=== PATIENT | female | born 1940 | race Caucasian/White ===

== ENCOUNTER 2018-05-31 14:46 | Emergency (ER) | payer MEDICARE ==
[2018-05-31] MEDS ORDERED: LIDOCAINE IV ONE (15:31)
[2018-05-31] MEDS ORDERED: Lidocaine 2% Gel 5 mL TP ONE (15:33)
[2018-05-31] MEDS ORDERED: Cetacaine 56 mL Bottle TP ONE (15:38)
--- NOTE | 2018-05-31 15:50 | ED Physician Chart ---
ED Chief Complaint/HPI - Patient Information Date Seen:: 05/31/18 Time Seen:: 15:20 Chief Complaint:: NG tube out. History of Present Illness:: Patient [facility] tube feeds [facility] the shelter. She pulled her own NG tube out. They would like for us to replace it. Allergies:: Allergies Allergy/AdvReac Type Severity Reaction Status Date / Time acetaminophen [From Ultracet] Allergy Verified 05/31/18 15:14 codeine Allergy Verified 05/31/18 15:15 diclofenac [From Voltaren] Allergy Verified 05/31/18 15:15 tramadol Allergy Verified 05/31/18 15:14 Vitals:: Vital Signs - 8 hr 05/31/18 15:15 Temp 98.8 F HR 69 RR 23 BP 135/43 O2 Sat % 99 ED Physical Exam - Physical Examination General/Constitutional: Awake Other Gen/Cons comments:: Patient appears to be permanently out of it. She has an opened mouth with dry mucous membranes. She is verbalizing unintelligible sounds. Cachectic appearing female. Head: Atraumatic Eyes: PERRL Other Skin comments:: Multiple areas of presumed skin breakdown with bandages present on the right back areas. Egg crate shoes in place. Poor skin turgor. Other ENMT comments:: Chronic beige ulceration present in the back of the throat area. Respiratory: Nl effort/Exclusion, Clear to Auscultation, No Wheeze/Rhonchi/Rales Other Respiratory comments:: Clear breath sounds heard between unintelligible sounds. Cardio Vascular: RRR, No murmur, gallop, rubs, NL S1 S2 Other Cardio Vascular comments:: Distant heart sounds heart between unintelligible sounds. GI: No tenderness/rebounding/guarding, No organomegaly, No hernia, Normal BS's, Nondistended, No mass/bruits, No McBurney tenderness Other Extremities comments:: egg crate mattress boots in place. ED Assessment - Assessment General Assessment: Dr. Smith from radiology called to tell me that he agreed that the NG tube was present in the stomach. Therefore, we have called the facility that she came from and they have confirmed that they have a secure device at their facility. The ambulance has been called for transfer back to the facility. 5:10 p.m. Assessment/Comments:: Luis Weiner called the facility who asked to simply have an NG tube placed for feeding purposes since the patient has not yet had a chance to have a PEG or PEJ placed. The facility was called to see what size NG tube they wanted to have replaced and they said that the nurse threw it in the trash and couldn't tell what size it was. - Procedures Procedures:: NG tube placed at 4:10 p.m. with a 16 mauritian. No complications whatsoever. No concerns over possible aspiration. ED Septic Shock - . Is Septic Shock (SBP<90, OR Lactate>4 mmol\L) present?: No - <6hrs of presentation: Vital Signs: Vital Signs - 8 hr /05/13 15:15 Temp 98.8 F HR 69 RR 23 BP 135/43 O2 Sat % 99 ED Reassessment (Disposition) - Diagnosis Diagnosis:: Dementia, Parkinson's, Aspiration Patient, NG tube placement ED Discharge Plan - Patient Disposition Admit/Discharge/Transfer: Discharge/Transfered to SNF Condition at Disposition: Improved Additional Instructions: Per feeding tube protocol. Xray placement confirmed, in stomach.
--- NOTE | 2018-06-01 10:33 | Diagnostic Imaging Report ---
Portable chest x-ray HISTORY: Shortness of breath, nasogastric tube placement Patient is rotated. The heart size appears increased. Accentuation of the lower interstitial lung markings. However, no definite focal pulmonary processes are seen. A nasogastric tube is seen with the tip extending into the region of the stomach. The sidehole is at the level of the diaphragm. IMPRESSION: 1. Accentuation of the lower interstitial lung markings. However, no focal processes are seen. 2. Nasogastric tube extending into the stomach. The sidehole is at the level of the diaphragm. This may be advanced several centimeters.
== END 2018-05-31 20:05 ==
LOC: ER 14:46
DX: Z43.1 Encounter for attention to gastrostomy (principal); G20 Parkinson's disease; F02.80 Dementia in other diseases classified elsewhere, unspecified severity, without behavioral disturbance, psychotic disturbance, mood disturbance, and anxiety; Z88.5 Allergy status to narcotic agent; Z88.8 Allergy status to other drugs, medicaments and biological substances
CPT/HCPCS: 71045-TC; X6496; X7704; Z7502; Z7610